=== PATIENT | female | born 1970 ===

== ENCOUNTER 2021-05-25 05:59 | Observation (INO) ==
[2021-05-02 11:36] LABS: Calcium 9.3 MG/DL (8.5-10.1); Osmolality,Calculated 278.7 MOS/KG (273-304); Potassium 4.1 MMOL/L (3.5-5.1)
[2021-05-02 11:42] LABS: Basophils # 0.1 10*3/uL (0.0-0.2); Basophils % 0.5 % (0.0-0.8); Eosinophils # 0.4 10*3/uL (0.0-0.87); Eosinophils % 3.2 % (0.00-10.9); Hematocrit 35.8 VOL% (35.7-47.0); Hemoglobin 11.9 GM/DL (12.0-16.0); Immature Granulocytes % 0.5 %; Immature Granulocytes Absolute 0.05 #; Lymphocytes # 4.1 10*3/uL (1.4-4.0); Lymphocytes % 37.4 % (21.3-54.2); Mean Corpuscular HGB Conc 33.2 GM/DL (32-36); Mean Corpuscular Volume 85.6 FL (87-102); Mean Platelet Volume 12.1 FL (9.6-12.0); Monocytes % 4.3 % (1.7-12.7); Neutrophils % 54.1 % (38.7-73.9); Platelet Count 293 T/CUMM (130-400); Red Blood Count 4.18 MC/CUMM (3.8-5.5); Red Cell Distribution Width 13.4 % (9.3-17.3); White Blood Count 10.9 T/CUMM (4-12)
[2021-05-25] MEDS ORDERED: CLINDAMYCIN INJ 900 MG/50 ML PREMIX IV ONE (06:00)
[2021-05-25] MEDS ORDERED: LACTATED RINGERS 1,000 ML IV SCH ×2 (06:00→11:00)
[2021-05-25] MEDS ORDERED: propofoL 200 MG/20 ML VIAL IV ONE ×2 (06:08→09:04)
[2021-05-25] MEDS ORDERED: fentaNYL 100 MCG/2 ML VIAL ONE (06:08)
[2021-05-25] MEDS ORDERED: LIDOCAINE 2% 5 ML VIAL ONE (06:08)
[2021-05-25] MEDS ORDERED: ROCURONIUM 50 MG/5 ML VIAL IV ONE (06:08)
[2021-05-25] MEDS ORDERED: MIDAZOLAM 2 MG/2 ML VIAL ONE (06:08)
[2021-05-25] MEDS ORDERED: TISSUE ADHESIVE 1 EACH APPLICATOR TOP ONE (06:30)
[2021-05-25] MEDS ORDERED: LIDOCAINE 1%/EPI INJ 20 ML VIAL ONE (06:30)
[2021-05-25] MEDS ORDERED: BUPIVACAINE MPF 0.25% 30 ML VIAL ONE (06:30)
[2021-05-25] MEDS ORDERED: SEVOFLURANE 1 UNIT/15 MINUTE INH ONE ×2 (07:24→08:12)
[2021-05-25] MEDS ORDERED: PHENYLEPHRINE 1 MG/10 ML SYRINGE IV ONE (07:24)
[2021-05-25] MEDS ORDERED: LACTATED RINGERS 1,000 ML IV ONE (07:56)
[2021-05-25] MEDS ORDERED: SUCCINYLCHOLINE 200 MG/10 ML VIAL ONE (07:56)
[2021-05-25] MEDS ORDERED: DEXAMETHASONE 4 MG/1 ML VIAL ONE (07:58)
[2021-05-25] MEDS ORDERED: ONDANSETRON 4 MG/2 ML VIAL ONE (07:58)
[2021-05-25] MEDS ORDERED: NEOSTIGMINE 10 MG/10 ML VIAL ONE (08:30)
[2021-05-25] MEDS ORDERED: GLYCOPYRROLATE 0.4 MG/2 ML VIAL ONE (08:30)
[2021-05-25] MEDS ORDERED: SUGAMMADEX 200 MG/2 ML VIAL IV ONE (08:35)
[2021-05-25] MEDS ORDERED: PROMETHAZINE 25 MG/1 ML VIAL ONE (09:05)
[2021-05-25] MEDS ORDERED: HYDROmorphone 1 MG/1 ML SYRINGE ONE (09:18)
[2021-05-25] MEDS: HYDROmorphone 1 MG/1 ML SYRINGE IV PRN ×3 (09:19→09:53)
[2021-05-25] MEDS ORDERED: ACETAMINOPHEN 325 MG TABLET PO PRN (10:55)
[2021-05-25] MEDS ORDERED: KETOROLAC 15 MG/1 ML VIAL IV PRN (10:55)
[2021-05-25] MEDS ORDERED: ALBUTEROL/IPRATROPIUM 3 ML NEB RESP TX PRN (10:55)
[2021-05-25] MEDS ORDERED: HYDROmorphone 1 MG/1 ML SYRINGE IV PRN ×2 (10:55)
[2021-05-25] MEDS ORDERED: ONDANSETRON 4 MG/2 ML VIAL IV PRN (10:55)
[2021-05-25] MEDS ORDERED: ALPRAZolam 0.5 MG TABLET PO PRN (10:55)
[2021-05-25 16:48] VITALS: BP 132/67
[2021-05-25] MEDS ORDERED: MELATONIN 3 MG TABLET PO SCH (21:00)
[2021-05-25] MEDS ORDERED: lisinopriL 20 MG TABLET PO SCH (21:00)
== END 2021-05-25 17:41 | disposition home or self-care (01) ==
LOC: N.OR 05:59 → N.3E 05:59 → N.SDSINP 06:05 → N.3E 10:20
PROVIDERS: ADMIT Surgery; ATTEND Surgery